=== PATIENT | female | born 1995 | race Caucasian/White ===

== ENCOUNTER 2019-05-17 01:24 | Inpatient (IN) ==
[2019-05-17] MEDS ORDERED: OXYTOCIN 30 UNITS/500 ML BAG IV PRN (02:06)
[2019-05-17] MEDS ORDERED: PENICILLIN G POTASSIUM 3 MU in DEXTROSE 5% 100 ML IV PRN (02:06)
[2019-05-17] MEDS ORDERED: PENICILLIN G POTASSIUM 6 MU in DEXTROSE 5% 250 ML IV STA (02:06)
[2019-05-17] MEDS: LACTATED RINGER'S 1,000 ML IV PRN ×2 (02:21→21:11)
[2019-05-17 02:25] LABS: Hematocrit (blood only) 36.1 % (37-47); Hemoglobin 11.9 g/dL (12.0-16.0); Mean Corpuscular Hemoglobin 29.2 pg (25-34); Mean Corpuscular Volume 88.5 fL (80-100); Mean Platelet Volume 10.8 fL (7.4-10.4); Platelet Count 248 K/uL (130-400); RDW Coefficient of Variation 12.9 % (11.5-14.5); RDW Standard Deviation 41.5 fL (36.4-46.3); Red Blood Count 4.08 M/uL (4.2-5.4); White Blood Count 15.72 K/uL (4.8-10.8)
[2019-05-17] MEDS ORDERED: fentaNYL citrate 100 MCG/2 ML VIAL ONE (06:08)
[2019-05-17] MEDS ORDERED: ePHEDrine sulfate 50 MG/ML AMP ONE (06:08)
[2019-05-17] MEDS ORDERED: fentaNYL 2MCG/ML ROPIV 1.25MG/ML 100 ML BAG EPI ONE (06:09)
[2019-05-17] MEDS ORDERED: BUPIVACAINE 0.25% 30 ML VIAL ONE (06:09)
--- NOTE | 2019-05-17 06:17 | History & Physical Report ---
Date of Service May 17, 2019 Assessment & Plan (1) : Admit to L&D. Pen G for GBS prophylaxis. Patient desires epidural. History of Present Illness Chief Complaint: contractions Primary Care Provider: Seema Shirley MD 24yo @ 39 3 presents with contractions and increased pelvic pressure. No leaking of fluid, no vaginal bleeding. + movement. complicated by GBS+ Allergies Allergy/AdvReac Type Severity Reaction Status Date / Time No Known Allergies Allergy Verified 05/17/19 01:47 Home Medications Home Medications Medication Instructions Recorded Confirmed Type prenat.vits,isra,kbv-glik-imhyt 1 tab PO DAILY 03/12/19 05/17/19 History ferrous sulfate 1 tab PO 3XWK 03/25/19 05/17/19 History Patient History Social History Preferred Language: Senegalese Communication Ability: Effective Offshoring Manager Required: No Beliefs That Will Affect Care: None marital status: Current Living Situation: Spouse Other Information That Helps Us Care for You: No Feels Safe at Home: Yes Safety Concerns: Feels Safe At This Time Smoking Status: Never smoker Hx Alcohol Use: No Hx Substance Use: No Review of Systems All systems reviewed & are unremarkable except as noted in HPI & below Physical Exam Physical Exam: FHT Cat 1 [place] irreg SVE: on arrival . Recheck 3.5 hours later: 4/100/-2 Constitutional: WD/WN, vitals as above Respiratory: normal respiratory effort, lungs clear to auscultation no respiratory distress Cardiovascular: Rate/Rhythm: regular rate and regular rhythm Gastrointestinal (Abdomen): Inspection/Auscultation: abdomen normal to inspection Percussion/Palpation: abdomen soft; abdomen nontender Gravid. No s/s chorio or abruption. Skin: no rashes, warm and dry Psychiatric: A+Ox3, euthymic affect Results & Data Vital Signs (Past 12 Hours) Vital Signs Temp Pulse Resp BP 05/17/19 03:25 36.7 C 82 16 118/72 05/17/19 01:42 36.9 C 85 18 135/79
[2019-05-17] MEDS ORDERED: fentaNYL 2MCG/ML ROPIV 1.25MG/ML 100 ML BAG EPI PRN (07:02)
[2019-05-17] MEDS ORDERED: DiphenhydrAMINE HCL 50 MG/ML VIAL IV PRN ×2 (07:02→09:33)
[2019-05-17] MEDS ORDERED: NALBUPHINE HCL INJ 10 MG/ML AMP IV PRN ×2 (07:02→09:33)
[2019-05-17] MEDS ORDERED: NALOXONE HCL 0.4 MG/1 ML VIAL/CARP IV PRN ×2 (07:02→09:33)
[2019-05-17] MEDS ORDERED: ONDANSETRON INJ 2 MG/ML 2 ML VIAL IV PRN ×2 (07:02→09:33)
[2019-05-17] MEDS ORDERED: ePHEDrine sulfate 50 MG/ML AMP IV PRN ×2 (07:02→09:33)
[2019-05-17] MEDS ORDERED: NALOXONE HCL 1 MG in SODIUM CHLORIDE 0.9% 1000ML 1,000 ML IV PRN ×2 (07:02→09:33)
[2019-05-17] MEDS ORDERED: PROMETHAZINE HCL 6.25 MG in SODIUM CHLORIDE 0.9% 50 ML IV PRN (07:02)
--- NOTE | 2019-05-17 07:04 | Anesthesiology Consultation ---
Date of Service May 17, 2019 Assessment & Plan (1) Encounter for pre-operative examination: Chart Review Chart Review: Acceptable Risk for Surgery and Patient NOT seen in Pre Admission Testing Consults Requested none ASA ASA2 Proposed Anesthesia Anesthesia Type: Labor Epidural Risk / Benefits Reviewed With: PT / POA / Parent / Guardian, Accepts Plan and Informed Consent Obtained History Height/Weight Height: 5 ft 3 in Weight: 86.183 kg Allergies Allergy/AdvReac Type Severity Reaction Status Date / Time No Known Allergies Allergy Verified 05/17/19 01:47 Medications Home Medications Medication Instructions Recorded Confirmed Last Taken prenat.vits,isra,pcz-zhcp-cetrw 1 tab PO DAILY 03/12/19 05/17/19 05/16/19 08:00 ferrous sulfate 1 tab PO 3XWK 03/25/19 05/17/19 05/16/19 20:00 Active Medications Generic Name Dose Route Start Last Admin Trade Name Freq PRN Reason Stop Dose Admin Lactated Ringer's 1,000 mls @ 125 mls/hr 05/17/19 02:06 05/17/19 06:17 Lr IV 05/19/19 02:05 999 mls/hr .Q8H PRN Infusion L&D Protocol Protocol Penicillin G Potassium 3 mu/ 106 mls @ 100 mls/hr 05/17/19 02:06 05/17/19 06:23 Dextrose IV 05/27/19 02:05 100 mls/hr Q4H PRN Administration Give until delivery NPO Date Last Intake of Fluids: 05/17/19 Time Last Intake of Fluids: 06:30 Date Last Intake of Solids: 05/17/19 Time Last Intake of Solids: 01:00 Past Medical History Medical History History of varicella vaccination No pertinent past medical history Exercise / Class Metabolic Activity II 4-5 Yardwork/Stairs/Walk up hill Past Family History Family History Family/Other Colorectal cancer grandfather Hypertension grandfather Prostate cancer grandfather Multiple gestation maternal great grandmother Grandmother (Maternal) Leukemia Sister PCOS (polycystic ovarian syndrome) Other No pertinent family history in first degree relatives Past Surgical History Surgical History History of wisdom tooth extraction Past Anesthesia History No Hx of Anesthesia Complications and No Family Hx of Anesthesia Complications History of PONV No Hx of PONV and No Hx of Motion Sickness Social History Smoking Status: Never smoker Hx Alcohol Use: No Hx Substance Use: No substance use type: does not use Physical Exam Vital Signs Last Vital Signs Temp 36.7 C 05/17/19 03:25 Pulse 88 05/17/19 07:00 Resp 16 05/17/19 03:25 BP 123/72 05/17/19 07:00 Pulse Ox 98 05/17/19 07:00 ENMT Mouth: no dentition abnormality Thyromental Distance: > or= 3.5 Finger Breadths Mallampati Class: II Neck normal visual inspection Respiratory normal respiratory effort Auscultation: lungs clear to auscultation bilaterally Cardiovascular Rate/Rhythm: regular rate and regular rhythm Psychiatric Orientation: alert Testing Laboratory Results 05/17/19 02:15
--- NOTE | 2019-05-17 08:47 | Obstetrical Progress Note ---
Date of Service May 17, 2019 Assessment & Plan (1) Term : fetus overall category one. arom. continue current management. pit if indicated. anticipate . (2) Normal labor: Subjective comfortable with epidural Physical Exam Constitutional: WD/WN, vitals as above Psychiatric: A+Ox3, euthymic affect Genitourinary: cx--5-6/100/-1 arom--clear toco--q2-4min efm--130s with mod variability , accels to 150s, one decel shortly after epidural Results & Data Vital Signs (Past 12 Hours) Vital Signs Temp Pulse Resp BP Pulse Ox 05/17/19 08:40 84 99 05/17/19 08:35 84 100 05/17/19 08:30 84 20 99 05/17/19 08:25 93 H 99 05/17/19 08:22 90 113/57 L 05/17/19 08:20 89 100 05/17/19 08:15 82 99 05/17/19 08:10 86 99 05/17/19 08:06 78 106/56 L 05/17/19 08:05 88 99 05/17/19 08:00 122 H 99 05/17/19 07:56 88 123/81 05/17/19 07:55 88 99 05/17/19 07:51 95 H 129/75 05/17/19 07:50 92 H 97 05/17/19 07:46 87 127/80 05/17/19 07:45 84 100 05/17/19 07:40 96 H 122/76 100 05/17/19 07:38 88 86 L 05/17/19 07:35 86 119/75 99 05/17/19 07:30 89 97 05/17/19 07:29 90 126/72 05/17/19 07:25 85 140/77 98 05/17/19 07:20 95 H 97 05/17/19 07:19 98 H 122/73 05/17/19 07:15 91 H 99 05/17/19 07:14 85 118/77 05/17/19 07:10 85 98 05/17/19 07:09 87 122/72 05/17/19 07:05 36.7 C 92 H 20 98 05/17/19 07:04 95 H 125/75 05/17/19 07:02 93 H 125/72 05/17/19 07:00 88 123/72 98 05/17/19 06:58 93 H 18 143/73 H 05/17/19 06:56 89 90 05/17/19 06:55 87 124/78 97 05/17/19 06:50 96 H 98 05/17/19 06:45 106 H 90 05/17/19 06:44 94 H 91 05/17/19 06:40 91 H 98 05/17/19 06:35 90 99 05/17/19 06:30 88 98 05/17/19 06:25 89 98 05/17/19 06:21 82 133/83 05/17/19 06:20 89 98 05/17/19 03:25 36.7 C 82 16 118/72 05/17/19 01:42 36.9 C 85 18 135/79 PG Care Time/CCT Total # of Minutes Spent Total Time Spent with Patient: Total time spent is greater than 50% in coordination of care (as documented) at patient's floor/unit and/or counseling patient:
[2019-05-17] MEDS ORDERED: PROPOFOL IV EMULSION 10 MG/ML 20 ML VIAL IV ONE (09:21)
[2019-05-17] MEDS ORDERED: DEXAMETHASONE SOD INJ 4 MG/ML VIAL ONE (09:21)
[2019-05-17] MEDS ORDERED: OXYTOCIN 10 UNITS/ML VIAL ONE (09:21)
[2019-05-17] MEDS ORDERED: ONDANSETRON INJ 2 MG/ML 2 ML VIAL ONE (09:21)
[2019-05-17] MEDS ORDERED: SUCCINYLCHOLINE CHLORIDE 20 MG/ML 10 ML VIAL ONE (09:21)
[2019-05-17] MEDS ORDERED: CEFAZOLIN 250 MG/ML 1 GM VIAL ONE (09:22)
[2019-05-17] MEDS ORDERED: MoRPHine SULFATE PF 1 MG/ML 10 ML AMP/VIAL ONE (09:28)
[2019-05-17] MEDS ORDERED: MoRPHine SULFATE 2 MG/ML CARP IV PRN (09:33)
[2019-05-17] MEDS ORDERED: PROMETHAZINE HCL 25 MG in SODIUM CHLORIDE 0.9% 50 ML IV PRN (09:33)
[2019-05-17] MEDS ORDERED: MoRPHine SULFATE PF 1 MG/ML 10 ML AMP/VIAL EPI ONE (09:33)
[2019-05-17] MEDS ORDERED: NALOXONE HCL 0.08 MG in SYRINGE 1.8 ML IV PRN (09:33)
[2019-05-17] MEDS ORDERED: LACTATED RINGER'S 500 ML IV PRN (09:33)
[2019-05-17] MEDS ORDERED: MEPERIDINE HCL 25 MG/ML CARP IV PRN (09:33)
[2019-05-17 09:44] LABS: Base Excess Cord Arterial Bld -9.4 mEq/L (-9-1.8); CO2 Cord Arterial Blood 63 mmHg (39.1-73.5); HCO3 Cord Arterial Blood 21 mmol/L (19.7-28.5); pH Cord Arterial Blood 7.14 (7.1-7.38)
[2019-05-17] MEDS ORDERED: SODIUM CHLORIDE 0.9% 1000ML 1,000 ML IV SCH (09:45)
[2019-05-17] MEDS ORDERED: NO NARCOTICS OR SEDATIVES SCH (09:45)
[2019-05-17] MEDS ORDERED: DC INTRASPINAL MORPHINE SCH (09:45)
[2019-05-17 09:49] LABS: Oxygen Sat Cord Arterial Blood < 60.0 % (<60)
[2019-05-17 09:50] LABS: Base Excess Cord Venous Blood -5.7 mEq/L (-7.7-1.9); Cord Venous Blood HCO3 22 mmol/L (18.4-26.8); Cord Venous Blood PCO2 50 mmHg (30.4-57.2); Cord Venous Blood PO2 19 mmHg (14.1-43.3); Cord Venous Blood pH 7.26 (7.20-7.44); O2 Saturation Cord Venous Bld < 60.0 % (<68)
[2019-05-17] MEDS ORDERED: miSOPROStoL 200 MCG TAB ONE (10:02)
--- NOTE | 2019-05-17 10:11 | XRay Report ---
KUB HISTORY: STAT section no surgical count COMPARISON: Chest radiograph 02/21/2019 FINDINGS: Mildly dilated air-filled loop of small bowel within the central abdomen measuring up to 3. 57 m transversely.. Partially imaged catheter projects over the left upper quadrant abdomen and upper lumbar spine. No definite opaque foreign body. There is no organomegaly. Probable phleboliths of the left hemipelvis. No renal calculi. No ureteral calculi. No pneumoperitoneum or pneumatosis. No fract ure. IMPRESSION: 1. Partially imaged catheter projects over the upper lumbar spine and abdominal left upper quadrant. 2. No definite opaque foreign body identified. 3. Mildly dilated loops of small bowel may reflect postoperative ileus. Electronically signed by: Irwin Mireles M.D. 05/17/2019 10:10 AM
[2019-05-17] MEDS ORDERED: miSOPROStoL 200 MCG TAB PR ONE (10:12)
--- NOTE | 2019-05-17 10:23 | Anesthesiology Progress Note ---
Date of Service May 17, 2019 Anesthesia Post Procedure Vital Signs Vital Signs: Temp Pulse Resp BP Pulse Ox 05/17/19 10:21 93 H 75 L 05/17/19 10:16 89 91 05/17/19 10:11 88 125/82 91 05/17/19 08:55 106 H 94 05/17/19 08:52 75 107/54 L 05/17/19 08:50 86 99 05/17/19 08:45 88 100 05/17/19 08:40 84 99 05/17/19 08:35 84 100 05/17/19 08:30 84 20 99 05/17/19 08:25 93 H 99 05/17/19 08:22 90 113/57 L 05/17/19 08:20 89 100 05/17/19 08:15 82 99 05/17/19 08:10 86 99 05/17/19 08:06 78 106/56 L 05/17/19 08:05 88 99 05/17/19 08:00 122 H 99 05/17/19 07:56 88 123/81 05/17/19 07:55 88 99 05/17/19 07:51 95 H 129/75 05/17/19 07:50 92 H 97 05/17/19 07:46 87 127/80 05/17/19 07:45 84 100 05/17/19 07:40 96 H 122/76 100 05/17/19 07:38 88 86 L 05/17/19 07:35 86 119/75 99 05/17/19 07:30 89 97 05/17/19 07:29 90 126/72 05/17/19 07:25 85 140/77 98 05/17/19 07:20 95 H 97 05/17/19 07:19 98 H 122/73 05/17/19 07:15 91 H 99 05/17/19 07:14 85 118/77 05/17/19 07:10 85 98 05/17/19 07:09 87 122/72 05/17/19 07:05 36.7 C 92 H 20 98 05/17/19 07:04 95 H 125/75 05/17/19 07:02 93 H 125/72 05/17/19 07:00 88 123/72 98 05/17/19 06:58 93 H 18 143/73 H 05/17/19 06:56 89 90 05/17/19 06:55 87 124/78 97 05/17/19 06:50 96 H 98 05/17/19 06:45 106 H 90 05/17/19 06:44 94 H 91 05/17/19 06:40 91 H 98 05/17/19 06:35 90 99 05/17/19 06:30 88 98 05/17/19 06:25 89 98 05/17/19 06:21 82 133/83 05/17/19 06:20 89 98 05/17/19 03:25 36.7 C 82 16 118/72 05/17/19 01:42 36.9 C 85 18 135/79 Transfer of Care Handoff Completed per policy Notes Mental Status: alert / awake / arousable and participated in evaluation Patient Amnestic to Procedure: Yes Nausea / Vomiting: adequately controlled Pain: adequately controlled Airway Patency, RR, SpO2: stable & adequate BP & HR: stable & adequate Hydration State: stable & adequate Anesthetic Complications: no major complications apparent and Pt Satisfied with anesthetic care
--- NOTE | 2019-05-17 10:23 | Anesthesia Procedure Note ---
Date of Service May 17, 2019 Anesthesia Post Epidural Note Vital Signs Vital Signs: Temp Pulse Resp BP Pulse Ox 36.7 C 89 20 125/82 91 05/17/19 07:05 05/17/19 10:16 05/17/19 08:30 05/17/19 10:11 05/17/19 10:16 Notes Mental Status: alert / awake / arousable and participated in evaluation Patient Amnestic to Procedure: Yes Nausea / Vomiting: adequately controlled Pain: adequately controlled Airway Patency, RR, SpO2: stable & adequate BP & HR: stable & adequate Hydration State: stable & adequate Neuraxial Anesthesia: was administered and sensory block is resolving Anesthetic Complications: no major complications apparent and Pt Satisfied with anesthetic care Epidural: Removed without complications and With tip intact Notes: removed at end of c section
--- NOTE | 2019-05-17 10:30 | Post Operative Brief Note ---
PG Immediate Post Op with CF Date of Surgery May 17, 2019 Pre & Post Diagnosis Operation Date: 05/17/19 09:20 Pre-op--- at term NRFHT failed vacuum Post-op--same <No data on this case meets the specified criteria> I identified the patient and participated in the time-out.: Yes Procedure Operation Date: 05/17/19 09:20 primary lower transverse converted to T-incision <No data on this case meets the specified criteria> Surgeon Ericka Tam MD, FACOG Clinical Statistical Programmer Dr. aKiser, Dr. Gong Estimated Blood Loss 500 Findings Consistent with Post-Op Diagnosis
--- NOTE | 2019-05-17 10:57 | Operative Report ---
DATE OF OPERATION: 05/17/2019 PREOPERATIVE DIAGNOSES: 1. Intrauterine at 39 and 3/7 weeks. 2. Normal labor. 3. Nonreassuring heart testing not responsive to resuscitation. 4. Failed vacuum. POSTOPERATIVE DIAGNOSES: 1. Intrauterine at 39 and 3/7 weeks. 2. Normal labor. 3. Nonreassuring heart testing not responsive to resuscitation. 4. Failed vacuum. PROCEDURE: Primary section started as a low transverse section, but incision was T'd up into the myometrium. SURGEON: Ericka Tam MD ANESTHESIA: Epidural and general. ESTIMATED BLOOD LOSS: 500 mL. FLUIDS: 1200cc. URINE OUTPUT: Clear yellow urine drained from the bladder at the end of the procedure when her catheter placed. INDICATIONS: Monse is a 1, para 0 who presented in active labor. She went from 3-1/2 to 5 cm dilated and underwent an epidural anesthetic. The baby was category 1 at this point in time. After about 45 minutes after the placement of the epidural catheter, an amniotomy was performed when the patient was 6 cm for clear fluid. heart tones at that time were category 1. Shortly after that, the patient had a terminal deceleration. When I checked her initially, she was 8 cm dilated. We rolled her. We gave her oxygen. We stimulated her. She was not on Pitocin at that time. We turned her back over and she was completely dilated in +1 station. heart tones were still in the 70s with a little bit of stimulation and trying to return to baseline to the 90s, but persistently there. I hope that we would be able to place a vacuum and if the patient had adequate pushing effort, we could get the baby delivered vaginally. Unfortunately, vacuum was placed x1 pulled and there was an immediate popoff. heart tones still in the 70s-80s, so decision made to proceed with immediate delivery. FINDINGS: Viable male , wedged into the pelvis. Apgars 7 and 9. Normal uterus, tubes, and ovaries were noted bilaterally. The low transverse section uterine incision was converted in a T fashion into the myometrium in order to affect delivery. COMPLICATIONS: T'ing of the uterus. DRAINS: Rolle. DISPOSITION: To recovery room in stable condition. DESCRIPTION OF PROCEDURE: The patient was emergently taken to the operating room. There was no time to place a Rolle catheter. She was prepped by bathing the belly with Betadine and she was drapped. A time-out was held, identifying correct patient, procedure. She had a running and a fairly adequately working epidural, so the procedure was started, but there was no time to give a bolus and allow adequate anesthesia via the epidural. A Pfannenstiel skin incision was made with the knife. This was taken down to the underlying layer of fascia with the knife. The fascia was incised in the midline with the knife and taken out laterally with scissors. The superior and inferior edges of the fascia was grasped and the fascia was opened caudad and cephalad. The muscles were in the midline. There was a big bulge anteriorly of the peritoneum, which I suspected was the bladder, so we were very, very careful to open this above that and then the bladder was reduced with a bladder blade. A bladder flap was created by grasping the vesicouterine peritoneum entering with scissors and taken out laterally. A hysterotomy incision was scored with a knife. Amniotic fluid was clear on entry, there was no bloody fluid noted. The incision was stretched with the finishing room operator's fingers. The finishing room operator's hand was placed into the uterus. The head was wedged deeply within the pelvis. With the help of a hand vaginally from a clinical nursing manager, I was able to get my hand around the head, but I was unfortunately unable to lift the head out of the pelvis. Therefore, I T'd the hysterotomy incision up into the myometrium. I tried once again to deliver the head, but was unable to unwedge it from the pelvis. Therefore, I delivered the feet through the hysterotomy incision and then was able to deliver the baby subsequently. The baby took a gasping breath on the surgical field. The cord was clamped and cut and the was handed off to the waiting pediatricians for drying and attention. Cord blood and gases were obtained. The placenta was manually extracted. The uterus was cleared of all clot and debris with moistened laparotomy sponges. I found the corners of the low transverse uterine incision and started stitches there. I then went up to the top of the T part of the incision in the myometrium and the T part of the incision was repaired in 2 layers, the first in a running locked layer, the second an imbricating layer. I then went to the transverse portion of the incision and it was repaired in 2 layers, the first in a running locked layer, the second in an imbricating layer. The peritoneum of the uterus was then reapproximated using a 0 Vicryl in a baseball stitch. We then copiously irrigated the pelvis and the posterior cul-de-sac. Some oozing edges were attended to with Bovie electrocautery. The uterus was reanteriorized. We irrigated again, and some oozing at the lower part of the T of the incision was attended to with a [id number]-hs-abeco suture of 0 Vicryl. Hemostasis was then noted to be excellent. The muscles were reapproximated in the midline with 0 Vicryl sutures. The fascia was reapproximated starting at the corners meeting in the midline with 0 Vicryl. The subcuticular tissue was copiously irrigated, it was hemostatic. The space was closed with 2-0 plain gut suture and the skin was closed with a subcuticular stitch of 4-0 Vicryl. This completed the procedure. Prior to beginning the surgery, we were able to count sponges and needles, so are only adequate count was of instruments. the sponge and needle counts were correct. A KUB x-ray was performed and there were no instruments noted within the pelvis. A Rolle catheter was placed after the procedure sterilely and 800 mcg of Cytotec was placed rectally. I attest to the content of the Intraoperative Record and any orders documented therein. Any exceptions are noted below. ALONDRA
[2019-05-17] MEDS: KETOROLAC 30 MG/ML VIAL IV PRN ×2 (11:51→21:07)
[2019-05-17] MEDS ORDERED: OXYTOCIN 20 UNITS in LACTATED RINGER'S 1,000 ML IV SCH ×2 (12:15→17:13)
[2019-05-17] MEDS ORDERED: LACTATED RINGER'S 1,000 ML IV SCH (17:13)
[2019-05-17] MEDS ORDERED: SUPERCREAM 0.870% 15 GM JAR EXT PRN (17:13)
[2019-05-17] MEDS ORDERED: DIPHTHERIA/TETANUS/PERTUSSIS 0.5 ML SYR/VIAL IM ONE (17:13)
[2019-05-17] MEDS ORDERED: BENZOCAINE 20% AER SPR 82.5 GM CAN EXT PRN (17:13)
[2019-05-17] MEDS ORDERED: HYDROCORTISONE ACETATE 25 MG SUPP PR PRN (17:13)
[2019-05-17] MEDS: CEFAZOLIN 2000MG 2,000 MG/15 ML SYR IV SCH (17:16)
[2019-05-17] MEDS: SIMETHICONE 80 MG CHEW PO SCH ×2 (18:23→21:06)
[2019-05-18] MEDS: CEFAZOLIN 2000MG 2,000 MG/15 ML SYR IV SCH ×2 (00:32→09:07)
[2019-05-18] MEDS ORDERED: DiphenhydrAMINE HCL 50 MG/ML VIAL IV PRN (03:35)
[2019-05-18] MEDS ORDERED: MEPERIDINE HCL 50 MG/ML CARP IV PRN (03:35)
[2019-05-18] MEDS ORDERED: KETOROLAC 30 MG/ML VIAL IV PRN (03:35)
[2019-05-18] MEDS: OXYCODONE/ACETAMINOPHEN 5mg/325mg TAB PO PRN ×4 (05:17→19:39)
[2019-05-18] MEDS: IBUPROFEN 600 MG TAB PO PRN ×4 (05:17→19:39)
--- NOTE | 2019-05-18 06:37 | Obstetrical Progress Note ---
Date of Service <Ramon Gong DO - Last Filed: 05/18/19 06:37> May 18, 2019 Assessment & Plan <DO Kody Epstein Last Filed: 05/18/19 06:37> (1) Other complications of anesthesia during , third trimester: -POD#1 - underwent emergent with T incision 2/2 nonreassuring FHT -Vitals reviewed. Tmax 37.6, patient tachycardic overnight max 110, current 105. - Patient denies SOB, chest pain, visual changes, weakness - continue to monitor. - GBS +, Blood Type O+ - Received Pen G prepartum, Ancef 2g q8h x 24 hour post op - Feels well today. Eating well and beginning to ambulate. - Pain well controlled. - Routine post care - After discharge will have [address] Tam. Day #:: 1 Subjective <Ramon Gong DO - Last Filed: 05/18/19 06:37> Ambulation: ambulating normally Voiding: no voiding problems (Torres catheter removed 1 hour ago, no void yet this AM. ) Passing Gas:: Yes Diet Tolerance:: regular diet Lochia:: Moderate Feeding Type:: breast feeding Current Pain Level(1-10): 1 (improves with analgesics) Patient is a 24 POD#1 emergent with T-incision 2/2 nonreassuring FHT. Patient states that she is doing well this morning and that her pain is well controlled. She states that she only got up for the first time about 1/2 an hour ago and that it has been well. She states that her only pain is back disc omfort and that the medications are helping significantly. She denies any shortness of breath, chest pain, dizziness, lightheadedness, or vision changes. Constitutional: no fever and no chills Respiratory: no cough, no dyspnea and no wheezing Cardiovascular: no chest pain, no dyspnea, no dyspnea on exertion, no edema and no calf pain Breast: no breast pain Gastrointestinal: no abdominal pain, no nausea and no vomiting Genitourinary (female): no dysuria Neurologic: no headache(s) Physical Exam <Ramon Churchlauryn - Last Filed: 05/18/19 06:37> Constitutional WD/WN, vitals as above Respiratory normal respiratory effort, lungs clear to auscultation Cardiovascular Rate/Rhythm: regular rhythm and + tachycardic (105bpm) Heart Sounds: normal S1 and normal S2; no click, no gallop, no murmur and no cardiac rub Extremities: + edema (+1); no calf tenderness Gastrointestinal (Abdomen) Inspection/Auscultation: abdomen normal to inspection, normal bowel sounds and + abdominal surgical incision (Dressing Clean and Dry) Percussion/Palpation: + abdomen tender (TTP lower quadrants, appropriate) and abdomen soft; no guarding Genitourinary OB Exam Abdomen: + fundal height Fundus: + firm, + tender (slight TTP, appropriate) and + relation to umbilicus (1cm below); not boggy Results & Data <Ramon Gong DO - Last Filed: 05/18/19 06:37> Vital Signs (Past 12 Hours) Vital Signs Temp Pulse Resp BP Pulse Ox 05/18/19 05:10 37.5 C 96 H 16 97/56 L 98 05/17/19 23:30 37.5 C 110 H 16 103/65 97 05/17/19 22:03 17 98 05/17/19 21:00 37.6 C H 105 H 18 100/64 96 05/17/19 20:00 16 98 05/17/19 19:00 16 98 Laboratory Results Abnormal lab results 05/17/19 Range/Units 09:11 Cord ABG Base Excess -9.4 L (-9-1.8) mEq/L Medications Administered Current Inpatient Medications Benzocaine (Dermoplast Pain Relieving [place]) 1 appln EXT UD PRN PRN Reason: use on skin as needed Stop: 06/16/19 17:12 Bisacodyl (Dulcolax) 10 mg MS PRN PRN PRN Reason: Constipation Stop: 05/19/19 23:59 Cocaine HCl (Supercream 0.870%) 1 gm EXT UD PRN PRN Reason: hemmorrhoidal inflammation Stop: 05/31/19 17:12 Diphenhydramine HCl (Benadryl) 25 mg IV QID PRN PRN Reason: Itching Stop: 06/17/19 03:34 Diphenhydramine HCl (Benadryl Capsule) 25 mg PO QID PRN PRN Reason: Itching Stop: 06/17/19 03:34 Hydrocortisone (Anusol Hc) 25 mg MS BID PRN PRN Reason: Hemorrhoids Stop: 06/16/19 17:12 Lactated Ringer's (Lr) 1,000 mls @ 125 mls/hr IV .Q8H PRN; Protocol PRN Reason: L&D Protocol Stop: 05/19/19 02:05 Last Infusion: 05/18/19 05:54 Dose: Infused Documented by: Oxytocin (Pitocin) 30 units in 500 mls @ 333.333 mls/hr IV .Q1H30M PRN; Protocol PRN Reason: Bleeding Control Stop: 06/16/19 02:05 Cefazolin Sodium (Ancef 2000mg) 2,000 mg in 15 mls @ 3.75 mls/min IV Q8H [facility] Stop: 05/18/19 16:59 Last Admin: 05/18/19 00:32 Dose: 3.75 mls/min Documented by: Ibuprofen (Motrin) 600 mg PO Q4H PRN PRN Reason: Pain Stop: 06/16/19 09:57 Last Admin: 05/18/19 05:17 Dose: 600 mg Documented by: Ketorolac Tromethamine (Toradol) 30 mg IV Q6H PRN PRN Reason: Pain Stop: 05/23/19 03:34 Meperidine HCl (Demerol) 50 - 75 mg IV Q4H PRN PRN Reason: Pain Stop: 06/01/19 03:34 Ondansetron HCl (Zofran) 4 mg IV Q6H PRN PRN Reason: Nausea And Vomiting Stop: 05/18/19 07:01 Oxycodone/Acetaminophen (Percocet 5mg/325mg) 1 - 2 tab PO Q4H PRN PRN Reason: Pain Stop: 06/01/19 03:34 Last Admin: 05/18/19 05:17 Dose: 1 tab Documented by: Prenat Multivit/Supervisor Dock/Iron/Folic Ac ( Vitamin) 1 tab PO DAILY@08 [facility] Stop: 06/17/19 07:59 Simethicone (Mylicon) 80 mg PO DAILY@08,13,17,21 [facility] Stop: 06/16/19 17:12 Last Admin: 05/17/19 21:06 Dose: 80 mg Documented by: <Ericka Tam MD, FACOG - Last Filed: 05/18/19 07:55> Co-Signing Physician Notes Resident Physician Supervision Note: I interviewed and examined the patient. Discussed with Dr. Gong and agree with findings and plan as documented in the note. Any exceptions or clarifications are listed here: Doing very well. torres out, voided, ambulating, tolerating regular diet. Notes her neck pain has resolved. Again discussed the situation leading up to the c/s, emergent nature and T of the incision. She IS NOT a candidate for and will need early indicated /early term delivery. Documented By: Ericka Tam MD, FACOG Resident Activity Tracking <Ramon Gong DO - Last Filed: 05/18/19 06:37> Resident Involvement: Resident Care Provided Care Provided: OB Delivery
[2019-05-18 06:51] LABS: Hematocrit (blood only) 31.1 % (37-47); Hemoglobin 10.3 g/dL (12.0-16.0); Mean Corpuscular Hemoglobin 29.5 pg (25-34); Mean Corpuscular Hgb Conc 33.1 g/dL (32-36); Mean Corpuscular Volume 89.1 fL (80-100); Platelet Count 211 K/uL (130-400); RDW Coefficient of Variation 13.2 % (11.5-14.5); RDW Standard Deviation 42.8 fL (36.4-46.3); Red Blood Count 3.49 M/uL (4.2-5.4)
[2019-05-18 07:23] LABS: Basophils # (auto) 0.02 K/uL (0-0.2); Basophils % (auto) 0.1 %; Eosinophils # (auto) 0.06 K/uL (0-0.5); Eosinophils % (auto) 0.3 %; Immature Granulocytes # (auto) 0.07 K/uL (0.00-0.02); Immature Granulocytes % (auto) 0.3 %; Lymphocytes # (auto) 1.04 K/uL (1.2-3.4); Lymphocytes % (auto) 4.7 %; Monocytes # (auto) 0.86 K/uL (0.11-0.59); Monocytes % (auto) 3.9 %; Neutrophils # (auto) 20.05 K/uL (1.4-6.5); Neutrophils % (auto) 90.7 %
[2019-05-18] MEDS: DOCUSATE SODIUM 100 MG CAP PO PRN ×2 (08:38→19:39)
[2019-05-18] MEDS: SIMETHICONE 80 MG CHEW PO SCH ×4 (08:38→19:39)
[2019-05-18] MEDS: PRENATAL VITAMIN 1 TAB PO SCH (08:38)
--- NOTE | 2019-05-18 13:06 | Anesthesiology Progress Note ---
Date of Service May 18, 2019 Anesthesia Post Procedure Vital Signs Vital Signs: Temp Pulse Pulse Resp BP BP Pulse Ox 05/18/19 07:50 37.2 C 85 18 108/67 97 05/18/19 05:10 37.5 C 96 H 16 97/56 L 98 05/17/19 23:30 37.5 C 110 H 16 103/65 97 05/17/19 22:03 17 98 05/17/19 21:00 37.6 C H 105 H 18 100/64 96 05/17/19 20:00 16 98 05/17/19 19:00 16 98 05/17/19 18:01 20 99 05/17/19 17:00 16 96 05/17/19 16:00 16 95 05/17/19 15:00 16 96 05/17/19 14:54 20 05/17/19 14:40 20 122/80 100 05/17/19 14:00 37.1 C 96 H 18 124/78 99 05/17/19 13:37 100 H 98 05/17/19 13:32 103 H 99 05/17/19 13:27 97 H 99 05/17/19 13:22 99 H 98 05/17/19 13:17 101 H 98 05/17/19 13:13 96 H 128/59 L 05/17/19 13:12 98 H 98 05/17/19 13:07 96 H 18 98 Pain Intensity Abdomen: Pain Intensity: 3 Notes Mental Status: alert / awake / arousable and participated in evaluation Patient Amnestic to Procedure: Yes Nausea / Vomiting: adequately controlled Pain: adequately controlled Airway Patency, RR, SpO2: stable & adequate BP & HR: stable & adequate Hydration State: stable & adequate Neuraxial Anesthesia: was administered and sensory block resolved Anesthetic Complications: no major complications apparent and Pt Satisfied with anesthetic care
[2019-05-19] MEDS: IBUPROFEN 600 MG TAB PO PRN ×6 (00:13→23:09)
[2019-05-19] MEDS: OXYCODONE/ACETAMINOPHEN 5mg/325mg TAB PO PRN ×6 (00:14→23:09)
[2019-05-19 06:37] LABS: Hematocrit (blood only) 30.7 % (37-47); Hemoglobin 9.9 g/dL (12.0-16.0)
[2019-05-19] MEDS: SIMETHICONE 80 MG CHEW PO SCH ×4 (09:35→21:08)
[2019-05-19] MEDS: DOCUSATE SODIUM 100 MG CAP PO PRN ×2 (09:36→21:08)
[2019-05-19] MEDS: PRENATAL VITAMIN 1 TAB PO SCH (09:36)
--- NOTE | 2019-05-19 09:43 | Obstetrical Progress Note ---
Date of Service May 19, 2019 Assessment & Plan (1) Supervision of normal first : 24yo S/p pCS. PP day 2. Doing well. - Will assess PE later in am Subjective Ambulation: ambulating normally Voiding: no voiding problems Diet Tolerance:: regular diet Lochia:: Moderate Patient sleeping. Partner reports patient doing well. Physical Exam Patient sleeping will reassess later in am Results & Data Vital Signs (Past 12 Hours) Vital Signs Temp Pulse Resp BP Pulse Ox 05/19/19 00:05 36.5 C 81 16 115/76 95
[2019-05-19] MEDS ORDERED: BISACODYL 10 MG SUPP PR PRN (09:54)
[2019-05-20] MEDS: IBUPROFEN 600 MG TAB PO PRN ×3 (06:15→14:12)
[2019-05-20] MEDS: OXYCODONE/ACETAMINOPHEN 5mg/325mg TAB PO PRN ×3 (06:16→14:13)
--- NOTE | 2019-05-20 07:13 | Obstetrical Progress Note ---
Date of Service <Ramon Gong DO - Last Filed: 05/20/19 07:13> May 20, 2019 Assessment & Plan <Ramon Gong DO - Last Filed: 05/20/19 07:13> (1) Other complications of anesthesia during , third trimester: -POD#3 - underwent emergent with T incision 2/2 nonreassuring FHT -Vitals reviewed, WNL - GBS +, Blood Type O+ - Received Pen G prepartum, Ancef 2g q8h x 24 hour post op - Feels well today. Eating well, ambulating well - Pain well controlled. - Routine post care - After discharge will have [address] Tam. Subjective <Ramon Gong DO - Last Filed: 05/20/19 07:13> Ambulation: ambulation w/ walker Voiding: no voiding problems Diet Tolerance:: regular diet Lochia:: Small Feeding Type:: breast feeding Current Pain Level(1-10): 2 (improves with analgesics ) Patient is a 24 POD#3. Patient states that she is doing well this morning and that her pain is well controlled. She has no complaints at this point in time. Constitutional: no fever and no chills Respiratory: no cough, no dyspnea and no wheezing Cardiovascular: no chest pain, no dyspnea, no dyspnea on exertion, no edema and no calf pain Breast: no breast pain Gastrointestinal: + abdominal pain (appropriate); no nausea and no vomiting Genitourinary (female): no dysuria Neurologic: no headache(s) Physical Exam <DO Kody Epstein Last Filed: 05/20/19 07:13> Constitutional WD/WN, vitals as above Respiratory normal respiratory effort, lungs clear to auscultation Cardiovascular Rate/Rhythm: regular rhythm and + tachycardic (105bpm) Heart Sounds: normal S1 and normal S2; no click, no gallop, no murmur and no cardiac rub Extremities: + edema (+1); no calf tenderness Gastrointestinal (Abdomen) Inspection/Auscultation: abdomen normal to inspection, normal bowel sounds and + abdominal surgical incision (Dressing Clean and Dry) Percussion/Palpation: + abdomen tender (TTP lower quadrants, appropriate) and abdomen soft; no guarding Genitourinary OB Exam Abdomen: + fundal height Fundus: + firm, + tender (slight TTP, appropriate) and + relation to umbilicus (2cm below); not boggy Results & Data <Ramon Gong DO - Last Filed: 05/20/19 07:13> Vital Signs (Past 12 Hours) Vital Signs Temp Pulse Resp BP Pulse Ox 05/19/19 22:55 36.8 C 86 16 123/82 98 05/19/19 21:10 36.7 C 92 H 16 115/79 97 <Volodymyr Garcia MD - Last Filed: 05/20/19 07:34> Co-Signing Physician Notes Patient doing well and agree with the above findings and plan. Stable for discharge Resident Activity Tracking <Ramon Gong DO - Last Filed: 05/20/19 07:13> Resident Involvement: Resident Care Provided Care Provided: OB Delivery
[2019-05-20] MEDS: SIMETHICONE 80 MG CHEW PO SCH ×2 (08:27→13:49)
[2019-05-20] MEDS: PRENATAL VITAMIN 1 TAB PO SCH (08:27)
[2019-05-20] MEDS: DOCUSATE SODIUM 100 MG CAP PO PRN (08:30)
== END 2019-05-20 19:35 | disposition home or self-care (01) | DRG 788 ==
LOC: OPB 01:24 → 4S1 01:29 → 4S2 14:58